=== PATIENT | female | born 1995 | race African-American/Black ===

== ENCOUNTER 2017-01-22 14:45 | Emergency (ER) | payer OTHER ==
[2017-01-22 15:00] VITALS: BP 138/79
[2017-01-22] MEDS ORDERED: SULFAMETHOXAZOLE/TRIMETHOPRIM 1 EACH TABLET PO ONE (15:12)
--- NOTE | 2017-01-22 15:57 | ED Physician Documentation ---
Skin Rash - HISTORIAN Historian: patient - HPI Stated Complaint: boil, upper inner left thigh Chief Complaint: Skin Rash Additional Information: tender, raised area x 4 days, drained yesterday Front/Back of Body, Lg ([place]): 1 - boil Onset: days ago (4) Timing: better Location: other (inguinal) Quality: painful Identified Cause?: No When Did Symptoms Start: 01/18/17 Where: home Context: Medication Exposure: none Context: Food Exposure: none Context: Other Exposure: denies: bee sting, wasp sting, ant bite, spider bite, poison adilia, poison oak - ROS CONST: none CVS/RESP: none EYES/ENT: none GI/: none MS/SKIN/LYMPH: other (tender swollwn area draining yellow pus ) NEURO/PSYCH: none - PAST HX Past History: other Other History: none Surgeries/Procedures: Yes (hernia) Allergies/Adverse Reactions: Allergies Allergy/AdvReac Type Severity Reaction Status Date / Time No Known Allergies Allergy Verified 01/22/17 14:54 Home Medications: Ambulatory Orders Medication Instructions Recorded Control 07/10/16 Sulfamethoxazole/Trimethoprim 1 each PO BID #14 tab 01/22/17 [Bactrim Ds] - SOCIAL HX Smoking History: non-smoker Alcohol Use: none Drug Use: none - FAMILY HX Family History: none - VITAL SIGNS Vital Signs: Vital Signs Temp Pulse Resp BP Pulse Ox 98.2 F 100 H 16 138/79 100 01/22/17 15:15 01/22/17 15:15 01/22/17 15:15 01/22/17 15:15 01/22/17 15:15 - REVIEWED ASSESSMENTS Nursing Assessment Reviewed: Yes Vitals Reviewed: Yes Progress - Results/Orders Results/Orders: no testing ordered. - Progress Progress: pt. stable entire time in er Critical Care Note - Critical Care Note Total Time (mins): 0 ED Results Lab/Radiology - Lab Results Lab Results: no testing ordered - Radiology Radiology Impressions: no testing ordered - Orders Orders: ED Orders Category Date Time Status Sulfamethoxazole/Trimethoprim [Bactrim Ds] Med 01/22/17 15:12 Discontinued 1 each PO NOW ONE Skin Rash Physical Exam - EXAM General Appearance: no acute distress Skin: warm,dry, abscess (left inguinal area) Location: other (left inguinal area) Character: asymmetric Symptoms: warmth, tenderness, swelling Extremities: non-tender, nml ROM, no edema EENT: eyes nml inspection, lips nml, gums nml, pharynx nml Neck: trachea midline, no swelling Respiratory: no resp distress, chest non-tender, breath sounds normal CVS: reg. rate & rhythm, heart sounds nml, murmur Abdomen: non-tender, no organomegaly, nml bowel sounds Neuro/Psych: oriented x3, CN's nml as tested, motor nml, sensation nml, mood/ affect nml Discharge Clincal Impression: Abscess Prescriptions: Sulfamethoxazole/Trimethoprim [Bactrim Ds] 1 each PO BID #14 tab Referrals: Sincere Hernandez MD [Primary Care Provider] - 2 Days Home Medications: Ambulatory Orders Control 07/10/16 Sulfamethoxazole/Trimethoprim [Bactrim Ds] 1 each PO BID #14 tab 01/22/17 Comments: discharged with script for Bactrim DS 1 p.o. bid x 7 days Condition: Stable Disposition: 01 HOME, SELF-CARE Decision to Admit: NO Decision Time: 15:10
== END 2017-01-22 15:15 | disposition home or self-care (01) ==
LOC: ED 14:45
DX: L02.426 Furuncle of left lower limb (principal)
CPT/HCPCS: 99283

== ENCOUNTER 2017-01-27 18:52 | Emergency (ER) | payer OTHER ==
--- NOTE | 2017-01-27 19:15 | ED Physician Documentation ---
General Adult - HISTORIAN Historian: patient - HPI Stated Complaint: sore throat Chief Complaint: General Adult Onset: days ago Timing: still present Severity: moderate Further Comments: yes (Pt is a 21 yo female with a sore throat. Pt was seen earlier this week and rx'd amoxicillin. Pt now has blisters on lower lip and tongue.) - ROS CONST: no problems EYES/ENT: other (blisters on lip and tongue) GI/: none MS/SKIN/LYMPH: none - PAST HX Past History: none Allergies/Adverse Reactions: Allergies Allergy/AdvReac Type Severity Reaction Status Date / Time No Known Allergies Allergy Verified 01/27/17 19:20 Home Medications: Ambulatory Orders Medication Instructions Recorded Control 07/10/16 Amoxicillin [Amoxicillin] 500 mg PO D 01/27/17 Valacyclovir HCl [Valtrex] 1,000 mg PO Q8H #21 tablet 01/27/17 - SOCIAL HX Smoking History: non-smoker - FAMILY HX Family History: No - VITAL SIGNS Vital Signs: Vital Signs Temp Pulse Resp BP Pulse Ox 138/79 01/22/17 15:15 - REVIEWED ASSESSMENTS Nursing Assessment Reviewed: Yes Vitals Reviewed: Yes General Adult Physical Exam - PHYSICAL EXAM GENERAL APPEARANCE: no distress EENT: eye inspection normal, pharyngeal erythema, other (small blisters on lower lip. one blister on L side of tongue) NECK: normal inspection RESPIRATORY: no resp distress CVS: reg rate & rhythm BACK: normal inspection SKIN: warm/dry EXTREMITIES: non-tender NEURO: oriented X3, motor nml Discharge Clincal Impression: Sore throat, oral blisters c/w HSV1 Prescriptions: Valacyclovir HCl [Valtrex] 1,000 mg PO Q8H #21 tablet Referrals: Sincere Hernandez MD [Primary Care Provider] - Home Medications: Ambulatory Orders Control 07/10/16 Amoxicillin [Amoxicillin] 500 mg PO D 01/27/17 Valacyclovir HCl [Valtrex] 1,000 mg PO Q8H #21 tablet 01/27/17 Condition: Stable Disposition: 01 HOME, SELF-CARE Decision to Admit: NO Decision Time: 19:22
[2017-01-27 19:19] VITALS: BP 139/75
== END 2017-01-27 19:30 | disposition home or self-care (01) ==
LOC: ED 18:52
DX: J02.9 Acute pharyngitis, unspecified (principal); B00.1 Herpesviral vesicular dermatitis

== ENCOUNTER 2017-02-18 18:50 | Emergency (ER) | payer OTHER ==
[2017-02-18 19:08] VITALS: BP 126/73
[2017-02-18 19:23] LABS: BASOPHILS % 0.8 (0.0-1.5); EOSINOPHILS % 2.7 % (0.0-6.8); MEAN CORPUSCULAR HEMOGLOBIN 28.5 pg (28.0-34.0); MEAN CORPUSCULAR VOLUME 91.4 fl (80.0-100.0); MONOCYTES % 4.9 % (0.0-11.0)
--- NOTE | 2017-02-18 19:23 | ED Physician Documentation ---
Female Urogenital Problems - HISTORIAN Historian: patient - HPI Stated Complaint: Increased vaginal bleeding past 1 1/2 weeks, Hx of same prob late 2015 Chief Complaint: Female Urogenital Problems Onset: other (10 days) Severity: moderate Further Comments: yes (21 year old female presents to the ER with c/o vaginal bleeding for the past 10 days. Patient states she has to use a pad and tampon, changing every hour. Patient is currently on Lo Oval daily and iron.) - Vaginal Bleeding Compared to Menstrual Periods: heavier LNMP (Last Known Menstrual Period): 02/08/17 Description of Menstrual: abnormal period(s) - ROS CONST: none GI/: other (RLQ discomfort ). denies: nausea, vomiting CVS/RESP: none EYES/ENT: none NEURO/PSYCH: none MS/SKIN/LYMPH: none - PAST HX Past History: other (anemia, dysfunctional uterine bleeding, psychiatric - cutter) Allergies/Adverse Reactions: Allergies Allergy/AdvReac Type Severity Reaction Status Date / Time No Known Allergies Allergy Verified 02/18/17 19:08 Home Medications: Ambulatory Orders Medication Instructions Recorded Norgestrel-Ethinyl Estradiol 1 tab PO D 02/18/17 [Cryselle-28 Tablet] - SOCIAL HX Smoking History: cigarettes - FAMILY HX Family History: none - VITAL SIGNS Vital Signs: Vital Signs Temp Pulse Resp BP Pulse Ox 98.8 F 90 16 126/73 99 02/18/17 18:51 02/18/17 18:51 02/18/17 18:51 02/18/17 18:51 02/18/17 18:51 - REVIEWED ASSESSMENTS Nursing Assessment Reviewed: Yes Vitals Reviewed: Yes Progress - Progress Progress: Was seen in October [address] Santiago and placed on iron and Lo Oval. Patient was to follow up in 6 weeks, did not go to follow up appointment. 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
== END 2017-02-18 20:05 | disposition home or self-care (01) ==
LOC: ED 18:50
DX: N94.6 Dysmenorrhea, unspecified (principal)
CPT/HCPCS: 85025; 99283

== ENCOUNTER 2017-03-03 09:01 | Outpatient (CLI) | payer OTHER | END 2017-03-03 09:02 | LOC: OUT 09:01 | PROVIDERS: ATTEND General Practice | DX: N93.8 Other specified abnormal uterine and vaginal bleeding (principal); Z91.5 Personal history of self-harm | CPT/HCPCS: 99213 ==

== ENCOUNTER 2017-09-15 13:56 | Outpatient (CLI) | payer OTHER | END 2017-09-15 14:00 | LOC: LAB 13:56 | PROVIDERS: ATTEND Physician Assistant | DX: Z34.90 Encounter for supervision of normal pregnancy, unspecified, unspecified trimester (principal) | CPT/HCPCS: 36415; 84702 ==

== ENCOUNTER 2017-09-20 15:29 | Emergency (ER) | payer OTHER ==
[2017-09-20] MEDS ORDERED: 0.9 % SODIUM CHLORIDE 1,000 ML IV ONE (15:44)
--- NOTE | 2017-09-20 17:00 | ED Physician Documentation ---
General Adult - HISTORIAN Historian: patient - HPI Stated Complaint: possible anxiety Chief Complaint: General Adult Onset: days ago Timing: still present Severity: mild Further Comments: yes (Pt is a 21 yo female who is approximately 4 weeks based on home and office test. Pt has hx anxiety and has been having a feeling that she can't take a full breath and a feeling of tightness in her chest. Pt has not had n/v, diaphoresis or radiation of chest tightness. Pt has been told by pcp that she may take vistaril for her anxiety, but is reticent to do this in .) - ROS CONST: other (anxiety) EYES/ENT: none CVS/RESP: chest pain (tightness), shortness of breath ("can't get a full breath ") GI/: none MS/SKIN/LYMPH: none NEURO/PSYCH: anxiety - PAST HX Past History: other (anxiety) Other History: none Surgeries/Procedures: none Allergies/Adverse Reactions: Allergies Allergy/AdvReac Type Severity Reaction Status Date / Time No Known Allergies Allergy Verified 09/20/17 15:42 - SOCIAL HX Smoking History: non-smoker - FAMILY HX Family History: No - VITAL SIGNS Vital Signs: Vital Signs Temp Pulse Resp BP Pulse Ox 98.0 F 85 20 107/63 99 09/20/17 15:37 09/20/17 15:37 09/20/17 15:37 09/20/17 15:37 09/20/17 15:37 - REVIEWED ASSESSMENTS Nursing Assessment Reviewed: Yes Vitals Reviewed: Yes Progress - Progress Progress: NS 1 L IVF U/a neg improved ED Results Lab/Radiology - Orders Orders: ED Orders Category Date Time Status Place IV Lock 1T Care 09/20/17 15:45 Active URINALYSIS Routine Lab 09/20/17 Ordered 0.9 % Sodium Chloride [Normal Saline] 1,000 ml Med 09/20/17 15:44 Discontinued IV Q1H General Adult Physical Exam - PHYSICAL EXAM GENERAL APPEARANCE: mild distress (mild anxitey) EENT: pharynx normal NECK: normal inspection, supple RESPIRATORY: no resp distress, chest non-tender, breath sounds normal CVS: reg rate & rhythm, heart sounds normal ABDOMEN: soft, no organomegaly, normal bowel sounds BACK: normal inspection, no CVA tenderness SKIN: warm/dry, normal color EXTREMITIES: non-tender, normal range of motion, no evidence of injury NEURO: oriented X3, CN's nml as tested, motor nml, sensation nml Discharge Clincal Impression: Anxiety, Referrals: Sincere Hernandez MD [Primary Care Provider] - Condition: Good Disposition: 01 HOME, SELF-CARE Decision to Admit: NO Decision Time: 17:00
[2017-09-20 17:07] VITALS: BP 110/67
== END 2017-09-20 17:05 | disposition home or self-care (01) ==
LOC: ED 15:29
DX: F41.9 Anxiety disorder, unspecified (principal); Z33.1 Pregnant state, incidental
CPT/HCPCS: 96360; 99283; J7030; S1016

== ENCOUNTER 2017-12-27 23:16 | Emergency (ER) | payer OTHER ==
[2017-12-27 23:44] VITALS: BP 91/51
--- NOTE | 2017-12-27 23:52 | ED Physician Documentation ---
Female Urogenital Problems - HISTORIAN Historian: patient - HPI Stated Complaint: abd pain Chief Complaint: Female Urogenital Problems Additional Information: pt `19 weeks having int but no regular abd pains irregular est q 20-30 minutes apart and not regular past 2-3 days. they come and go has whitish discharge ess throughout -unable to hear fht w/our ofl monitor- has heard them w/ prev us at the obs office. suggested perhaps more harml in checking vaginally lthan in lleaving alone. 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 denies: spotting, passing clots Care: Yes Sexual History: active - Associated Symptoms Urinary Symptoms: denies: blood in urine, frequent urination, discomfort w/ urination Discharge: vaginal discharge - ROS CONST: no problems GI/: denies: nausea, vomiting, decreased appetite CVS/RESP: denies: none, chest pain, shortness of breath EYES/ENT: none NEURO/PSYCH: none MS/SKIN/LYMPH: none - PAST HX Past History: none Other History: none Surgeries/Procedures: other (hernia) Immunizations: UTD Allergies/Adverse Reactions: Allergies Allergy/AdvReac Type Severity Reaction Status Date / Time No Known Allergies Allergy Verified 09/20/17 15:42 - SOCIAL HX Smoking History: non-smoker Alcohol Use: none Drug Use: none - FAMILY HX Family History: none - VITAL SIGNS Vital Signs: Vital Signs Temp Pulse Resp BP Pulse Ox 98.4 F 91 H 16 91/51 100 12/27/17 23:20 12/27/17 23:20 12/27/17 23:20 12/27/17 23:20 12/27/17 23:20 - REVIEWED ASSESSMENTS Nursing Assessment Reviewed: Yes Vitals Reviewed: Yes Female Urogenital Problems - EXAM General Appearance: mild distress EENT: eye inspection normal, no signs of dehydration, no nystagmus Neck: nml inspection. No: lymphadenopathy Respiratory: no resp. distress, breath sounds nml CVS: reg rate & rhythm, heart sounds normal Abdomen: soft, non-tender, no organomegaly, no distention, other (uterus soft no umm contractions). No: tenderness Back: non-tender, painless ROM. No: vertebral point-tendernes Skin: color nml, no rash, warm,dry. No: cyanosis, diaphoresis Extremities: non-tender, normal range of motion, no evidence of injury Neuro: oriented X3, CN's nml as tested, motor nml, sensation nml, mood/affect nml Discharge Clincal Impression: uterine 19 weeks Referrals: Sincere Hernandez MD [Primary Care Provider] - 2 Days Comments: home observe rt ed or see ob if sy get sig worse or more intense and w/ regularity-pt agreees Condition: Good Disposition: 01 HOME, SELF-CARE Decision to Admit: NO Decision Time: 23:59
== END 2017-12-28 00:02 | disposition home or self-care (01) ==
LOC: ED 23:16
DX: R10.9 Unspecified abdominal pain (principal); Z3A.19 19 weeks gestation of pregnancy
CPT/HCPCS: 99282

== ENCOUNTER 2018-01-28 13:43 | Emergency (ER) | payer OTHER ==
[2018-01-28] MEDS ORDERED: 0.9 % SODIUM CHLORIDE 1,000 ML IV ONE (14:15)
--- NOTE | 2018-01-28 14:16 | ED Physician Documentation ---
Low Back Pain - HISTORIAN Historian: patient - HPI Stated Complaint: Back Pain/Lower Abdominal Pain Chief Complaint: Low Back Pain/ Injury History: other (she is (23 weeks) ) Onset: days ago (3) Duration: continues in ED Recent Injury: No (no injury although she is lifting at the [employer] where she works ) Context: lifting Where: work Severity: mild Quality: dull Associated Symptoms: other (no cramps. No cyclic pain but constant ). denies: fever, chills, nausea, vomiting Relieved By: nothing (she has only tried a heating pad due to ) Further Comments: yes (small amount of white discharge. No fluid leaking . Denies any cramping in abdomen.) - ROS CONST: no problems - PAST HX Past History: other (none ) Surgeries/Procedures: other (none ) Immunizations: UTD Allergies/Adverse Reactions: Allergies Allergy/AdvReac Type Severity Reaction Status Date / Time No Known Allergies Allergy Verified 01/28/18 14:19 - SOCIAL HX Smoking History: non-smoker Alcohol Use: none Drug Use: none - FAMILY HX Family History: none - VITAL SIGNS Vital Signs: Vital Signs Temp Pulse Resp BP Pulse Ox 90 16 105/65 100 01/28/18 13:45 01/28/18 13:45 01/28/18 13:45 01/28/18 13:45 - REVIEWED ASSESSMENTS Nursing Assessment Reviewed: Yes Vitals Reviewed: Yes ED Results Lab/Radiology - Lab Results Lab Results: Lab Results 01/28/18 13:52 Urine Color Yellow (YELLOW) Urine Appearance Clear (CLEAR) Urine pH 7.5 (5.0 - 8.0) Ur Specific [place] 1.020 (1.010-1.030) Urine Protein Trace mg/dL H mg/dL (NEGATIVE) Urine Ketones Trace mg/dL H mg/dL (NEGATIVE) Urine Occult Blood Negative (NEGATIVE) Urine Nitrite Negative (NEGATIVE) Urine Bilirubin Negative (NEGATIVE) Urine Urobilinogen 0.2 Eu Eu (0.2-1.0) Ur Leukocyte Esterase Trace H (NEGATIVE) Urine Glucose Negative mg/dL mg/dL (NEGATIVE) - Orders Orders: ED Orders Category Date Time Status UA MACRO DIP ONLY Routine Lab 01/28/18 13:52 Completed URINE CULTURE Routine Lab 01/28/18 13:52 Received 0.9 % Sodium Chloride [Normal Saline] 1,000 ml Med 01/28/18 14:15 Discontinued IV .STK-MED Low Back Pain/Injury - Physical Exam General Appearance: no acute distress, alert EENT: eye inspection normal, ENT inspection normal Neck: non-tender Resp/CVS: chest non-tender, breath sounds nml, heart sounds nml, no resp. distress, lungs clear, reg. rate & rhythm Abdomen: non-tender, other (FHT documented on nurse flow sheet 165) Back: non-tender, painless ROM, other (tenderness low back right to midline with palpation. ) Neuro/Psych: oriented x3, motor nml, sensation nml Skin: warm/dry, normal color Extremities: non-tender, normal range of motion, no evidence of injury, no edema Discharge Clincal Impression: Low back pain Qualifiers: Chronicity: acute Back pain laterality: right Sciatica presence: without sciatica Qualified Code(s): M54.5 - Low back pain UTI in Qualifiers: Trimester: second trimester Qualified Code(s): O23.42 - Unspecified infection of urinary tract in , second trimester Referrals: Sincere Hernandez MD [Primary Care Provider] - 2 Days Comments: 1. increase fluids 2. rest 3. contact OBGYN 4. Return to ER for increasing pain, cramping, vaginal leakage or other concerns Condition: Stable Disposition: 01 HOME, SELF-CARE Decision to Admit: NO Date of Decison to Admit: 01/28/18 Decision Time: 14:55
[2018-01-28 14:24] LABS: APPEARANCE,URINE CLEAR (CLEAR); COLOR,URINE YELLOW (YELLOW)
[2018-01-28 14:25] LABS: OCCULT BLOOD,URINE NEGATIVE (NEGATIVE); PH URINE 7.5 (5.0 - 8.0); UROBILINOGEN URINE 0.2 Eu (0.2-1.0)
[2018-01-28 15:15] VITALS: BP 110/68
== END 2018-01-28 15:00 | disposition home or self-care (01) ==
LOC: ED 13:43
DX: O23.42 Unspecified infection of urinary tract in pregnancy, second trimester (principal); M54.5 Low back pain
CPT/HCPCS: 81002; 87086; 87186; J7030; 96365; 99282; 99283; S1016

== ENCOUNTER 2018-03-04 22:03 | Emergency (ER) | payer OTHER ==
[2018-03-04 22:12] VITALS: BP 116/63
--- NOTE | 2018-03-04 22:13 | ED Physician Documentation ---
General Adult - HISTORIAN Historian: patient - HPI Stated Complaint: "Panic Attacks" Chief Complaint: General Adult Onset: other (this week ) Timing: still present Severity: mild Further Comments: yes (She reports she has had anxiety before and her grandfather this week and her anxiety it worse. She did see her OBGYN this am and she had not issues. She is feeling the baby move) Last known Well Code/Unknown Code: Unknown - ROS CONST: no problems - PAST HX Past History: other (anxiety ) Surgeries/Procedures: none Immunizations: UTD Allergies/Adverse Reactions: Allergies Allergy/AdvReac Type Severity Reaction Status Date / Time No Known Allergies Allergy Verified 03/04/18 22:12 - SOCIAL HX Smoking History: non-smoker Alcohol Use: none Drug Use: none - FAMILY HX Family History: No - VITAL SIGNS Vital Signs: Vital Signs Temp Pulse Resp BP Pulse Ox 98 F 82 16 116/63 99 03/04/18 22:05 03/04/18 22:05 03/04/18 22:05 03/04/18 22:05 03/04/18 22:05 - REVIEWED ASSESSMENTS Nursing Assessment Reviewed: Yes Vitals Reviewed: Yes General Adult Physical Exam - PHYSICAL EXAM GENERAL APPEARANCE: no distress EENT: eye inspection normal, ENT inspection normal NECK: normal inspection RESPIRATORY: no resp distress, chest non-tender, breath sounds normal CVS: reg rate & rhythm, heart sounds normal, equal pulses, no murmur ABDOMEN: soft, normal bowel sounds, no distension BACK: normal inspection SKIN: warm/dry, normal color EXTREMITIES: non-tender, normal range of motion, no evidence of injury, no edema NEURO: oriented X3, CN's nml as tested, motor nml, sensation nml, mood/affect nml, cognition normal, other (Denies any suicidal thoughts. She is not having any issues with depression other than sad over grandfathers ) Discharge Clincal Impression: Anxiety Referrals: Sincere Hernandez MD [Primary Care Provider] - 2 Days Comments: 1. Follow up via phone with OBGYN tomorrow 2. Benadryl is safe to take with anxiety and 3. Increase fluids 4. Deep breathing for anxiety 5. Return to the ER for any concerns Condition: Stable Disposition: 01 HOME, SELF-CARE Decision to Admit: NO Date of Decison to Admit: 03/04/18 Decision Time: 22:29
[2018-03-04] MEDS ORDERED: diphenhydrAMINE HCL 25 MG TABLET PO ONE ×2 (22:17→22:18)
== END 2018-03-04 22:34 | disposition home or self-care (01) ==
LOC: ED 22:03
DX: F41.1 Generalized anxiety disorder (principal)
CPT/HCPCS: 99283; Q0163

== ENCOUNTER 2018-03-17 22:11 | Emergency (ER) | payer OTHER ==
--- NOTE | 2018-03-17 22:26 | ED Physician Documentation ---
General Adult - HISTORIAN Historian: patient - HPI Stated Complaint: lump on uterus Chief Complaint: General Adult Additional Information: Lump on uterus for several weeks that causes her pain. Has not seen anyone for this and no treatment has been attempted. Came to the ER [place] because she says the pain is worse. , edc in May. No problems with and has not shown lump to OB. - ROS CONST: no problems - PAST HX Past History: none Allergies/Adverse Reactions: Allergies Allergy/AdvReac Type Severity Reaction Status Date / Time No Known Allergies Allergy Verified 03/04/18 22:12 - SOCIAL HX Smoking History: non-smoker - FAMILY HX Family History: No - VITAL SIGNS Vital Signs: Vital Signs Temp Pulse Resp BP Pulse Ox 116/63 03/04/18 22:34 - REVIEWED ASSESSMENTS Nursing Assessment Reviewed: Yes Vitals Reviewed: Yes Progress - Progress Progress: States has been feeling baby move. No doppler available to check FHT's. General Adult Physical Exam - PHYSICAL EXAM GENERAL APPEARANCE: no distress EENT: eye inspection normal, ENT inspection normal NECK: normal inspection, supple RESPIRATORY: no resp distress ABDOMEN: soft (gravid), other (Distal abdomen on right, above labia majora, w/o swelling, induration, erythema, or tenderness. ) BACK: other (supple movements w/o pain) SKIN: warm/dry, normal color EXTREMITIES: normal range of motion (gait and stance) NEURO: CN's nml as tested, motor nml, sensation nml Discharge Clincal Impression: Pain in symphysis pubis during Referrals: Sincere Hernandez MD [Primary Care Provider] - 2 Days Condition: Good Disposition: HOME, SELF-CARE Decision to Admit: NO Decision Time: 22:30
[2018-03-17 22:32] VITALS: BP 116/58
== END 2018-03-17 22:35 | disposition home or self-care (01) ==
LOC: ED 22:11
DX: O99.89 Other specified diseases and conditions complicating pregnancy, childbirth and the puerperium (principal)
CPT/HCPCS: 99282

== ENCOUNTER 2018-06-20 23:55 | Emergency (ER) | payer OTHER ==
--- NOTE | 2018-06-21 00:02 | ED Physician Documentation ---
General Adult - HISTORIAN Historian: patient - HPI Stated Complaint: sore throat x 1 week Chief Complaint: Sore Throat Onset: other (1 week) Timing: still present Severity: mild Further Comments: yes (She reports a sore throat x 1 week. No other symptoms. No OTC meds for symptoms) Last known Well Code/Unknown Code: Unknown - ROS CONST: no problems EYES/ENT: none CVS/RESP: none MS/SKIN/LYMPH: none - PAST HX Past History: none Immunizations: UTD Allergies/Adverse Reactions: Allergies Allergy/AdvReac Type Severity Reaction Status Date / Time No Known Allergies Allergy Verified 03/17/18 22:32 Home Medications: Ambulatory Orders Medication Instructions Recorded Ferrous Sulfate [Iron] 325 mg PO DAILY 03/17/18 - SOCIAL HX Smoking History: non-smoker Alcohol Use: none Drug Use: none - FAMILY HX Family History: No - VITAL SIGNS Vital Signs: Vital Signs Temp Pulse Resp BP Pulse Ox 116/58 03/17/18 22:35 - REVIEWED ASSESSMENTS Nursing Assessment Reviewed: Yes Vitals Reviewed: Yes General Adult Physical Exam - PHYSICAL EXAM GENERAL APPEARANCE: no distress EENT: eye inspection normal, TM's nml, pharyngeal erythema NECK: normal inspection RESPIRATORY: no resp distress, chest non-tender, breath sounds normal CVS: reg rate & rhythm, heart sounds normal, equal pulses, no murmur ABDOMEN: soft SKIN: warm/dry, normal color EXTREMITIES: non-tender, normal range of motion, no evidence of injury, no edema NEURO: oriented X3 Discharge Clincal Impression: Acute pharyngitis Qualifiers: Pharyngitis/tonsillitis etiology: unspecified etiology Qualified Code(s): J02.9 - Acute pharyngitis, unspecified Referrals: Sicnere Hernandez MD [Primary Care Provider] - 2 Days Additional Instructions: 1. Tylenol or Ibuprofen as directed on bottle as needed for pain 2. Increase fluids 3. See PCP in 2-4 days for continued sore throat 4. Return to ER for concerns Condition: Stable Disposition: 01 HOME, SELF-CARE Decision to Admit: NO Date of Decison to Admit: 06/21/18 Decision Time: 00:48
[2018-06-21 03:05] VITALS: BP 91/64
== END 2018-06-21 01:20 | disposition home or self-care (01) ==
LOC: ED 23:55
DX: J02.9 Acute pharyngitis, unspecified (principal)
CPT/HCPCS: 87070; 87880; 99282

== ENCOUNTER 2018-08-13 14:45 | Outpatient (CLI) | payer OTHER | END 2018-08-13 14:46 | LOC: LABRHC 14:45 | PROVIDERS: ATTEND Physician Assistant | DX: R30.0 Dysuria (principal); Z11.3 Encounter for screening for infections with a predominantly sexual mode of transmission | CPT/HCPCS: 87086; 87491; 87591 ==

== ENCOUNTER 2018-08-31 14:33 | Outpatient (CLI) | payer OTHER | END 2018-08-31 14:34 | LOC: LABRHC 14:33 | PROVIDERS: ATTEND Physician Assistant | DX: N89.8 Other specified noninflammatory disorders of vagina (principal); R30.0 Dysuria | CPT/HCPCS: 87086; 87491; 87591 ==

== ENCOUNTER 2018-10-12 17:05 | Outpatient (CLI) | payer OTHER ==
[2018-10-18 12:29] LABS: CANDIDA SPECIES DNA PROBE NEGATIVE; GARDNERELLA VAGINALIS POSITIVE
== END 2018-10-12 17:06 ==
LOC: LABRHC 17:05
PROVIDERS: ATTEND Physician Assistant
DX: N89.8 Other specified noninflammatory disorders of vagina (principal); B96.89 Other specified bacterial agents as the cause of diseases classified elsewhere
CPT/HCPCS: 87480; 87491; 87510; 87591; 87798

== ENCOUNTER 2018-10-14 17:18 | Emergency (ER) | payer OTHER ==
--- NOTE | 2018-10-14 17:38 | ED Physician Documentation ---
General Adult - HISTORIAN Historian: patient - HPI Stated Complaint: anxiety attacks Chief Complaint: General Adult Onset: days ago (2) Timing: still present Severity: mild Further Comments: yes (She states she has had anxiety for a while and she was on zoloft which helped but was removed while . She has had increased anxiety over the last two days. She has increased stress. No suicide thoughts.) - ROS CONST: no problems - PAST HX Past History: other (anxiety ) Immunizations: UTD Allergies/Adverse Reactions: Allergies Allergy/AdvReac Type Severity Reaction Status Date / Time No Known Allergies Allergy Verified 10/14/18 18:10 Home Medications: Ambulatory Orders Medication Instructions Recorded Unobtainable 10/14/18 - SOCIAL HX Smoking History: non-smoker, greater than 1 pack/day Drug Use: none - FAMILY HX Family History: No - VITAL SIGNS Vital Signs: Vital Signs Temp Pulse Resp BP Pulse Ox 91/64 06/21/18 01:20 - REVIEWED ASSESSMENTS Nursing Assessment Reviewed: Yes Vitals Reviewed: Yes General Adult Physical Exam - PHYSICAL EXAM GENERAL APPEARANCE: no distress EENT: eye inspection normal NECK: normal inspection RESPIRATORY: no resp distress, chest non-tender, breath sounds normal CVS: reg rate & rhythm, heart sounds normal, equal pulses ABDOMEN: soft, no distension BACK: normal inspection SKIN: warm/dry, normal color EXTREMITIES: non-tender NEURO: oriented X3, CN's nml as tested Discharge Clincal Impression: Anxiety Referrals: Sincere Hernandez MD [Primary Care Provider] - 2 Days Comments: 1. Hydroxazine 25 mg take 1 by mouth every 8 hours as needed for anxiety 2. See PCP in 2-4 days 3. Return to ER for any concerns Condition: Stable Disposition: 01 HOME, SELF-CARE Decision to Admit: NO Date of Decison to Admit: 10/14/18 Decision Time: 17:55
[2018-10-14] MEDS: HYDROXYZINE HCL 25 MG TABLET PO ONE (18:04)
[2018-10-14 18:08] VITALS: BP 114/66
== END 2018-10-14 18:20 | disposition home or self-care (01) ==
LOC: ED 17:18
DX: F41.9 Anxiety disorder, unspecified (principal)
CPT/HCPCS: 99281; 99283

== ENCOUNTER 2019-02-11 21:42 | Emergency (ER) | payer OTHER ==
[2019-02-11] MEDS ORDERED: ONDANSETRON HCL 4 MG TAB.RAPDIS PO ONE (21:52)
[2019-02-11] MEDS ORDERED: ONDANSETRON HCL 4 MG TAB.RAPDIS PO PRN (21:52)
[2019-02-11 21:54] VITALS: BP 115/69
--- NOTE | 2019-02-11 21:54 | ED Physician Documentation ---
Nausea/Vomiting/Diarrhea - HISTORIAN Historian: patient - [facility] Chief Complaint: Nausea,Vomiting,Diarrhea Additional Information: Patient is a 23-year-old female who presents to the ER with c/o n/v/d that started at 3p and stopped at 8p. She denies feeling dehydrated. When asked if she could be she stated "I don't know"- states that she is sexually active and not using control. Onset: hours (from 3p-8p) Duration: other (improved) Timing: gradual onset Context: bad food (possibly) Severity: mild - Associated Symptoms Vomiting: mild Diarrhea: mild Abdominal Pain: none - ROS CONST: denies: fever, chills CVS/RESP: denies: shortness of breath, cough GI/: none EYES/ENT: none MS/SKIN/LYMPH: denies: rash NEURO/PSYCH: none - PAST HX Past History: none Surgeries/Procedures: other (hernia) Immunizations: UTD Allergies/Adverse Reactions: Allergies Allergy/AdvReac Type Severity Reaction Status Date / Time No Known Allergies Allergy Verified 02/11/19 21:55 Home Medications: Ambulatory Orders Medication Instructions Recorded NK 02/11/19 - SOCIAL HX Smoking History: non-smoker Alcohol Use: rarely Drug Use: none - FAMILY HX Family History: none - VITAL SIGNS Vital Signs: Vital Signs Temp Pulse Resp BP Pulse Ox 98.7 F 110 H 19 115/69 98 02/11/19 21:49 02/11/19 21:49 02/11/19 21:49 02/11/19 21:49 02/11/19 21:49 - REVIEWED ASSESSMENTS Nursing Assessment Reviewed: Yes Vitals Reviewed: Yes ED Results Lab/Radiology - Lab Results Lab Results: test- Negative - Orders Orders: ED Orders Category Date Time Status URINE HCG Stat Lab 02/11/19 22:09 Ordered Ondansetron HCl Rapdis [Zofran Odt] Med 02/11/19 21:52 Discontinued 4 mg PO NOW ONE Ondansetron HCl Rapdis [Zofran Odt] Med 02/11/19 21:52 Ordered 8 mg PO TAKE HOME PRN Nausea Physical Exam - EXAM General Appearance: no acute distress, alert EENT: eye inspection normal, ENT inspection normal, pharynx normal, YVON Neck: normal inspection, supple Respiratory: breath sounds normal CVS: heart sounds normal, equal pulses Abdomen: non-tender Skin: warm/dry Extremities: normal range of motion Neuro/Psych: oriented X3, CN's nml as tested, motor nml, sensation nml, mood/affect nml, cognition normal Discharge Clincal Impression: Gastritis Referrals: Primary Doctor,No [REFERRING] - 2 Days Additional Instructions: Take Zofran 4 mg every 6 hours as needed for nausea and vomiting Increase fluid intake; no caffeine Start with a bland diet and advance as tolerated; no spicy, greasy, or fried foods Follow up with PCP next week if no improvement Condition: Good Disposition: 01 HOME, SELF-CARE Decision to Admit: NO Decision Time: 22:18
== END 2019-02-11 22:19 | disposition home or self-care (01) ==
LOC: ED 21:42
DX: K29.70 Gastritis, unspecified, without bleeding (principal)
CPT/HCPCS: 81025; 99283; A9270

== ENCOUNTER 2019-04-25 16:22 | Outpatient (CLI) | payer OTHER ==
[2019-02-22 18:25] VITALS: BP 107/55
== END 2019-04-25 16:23 ==
LOC: LABRHC 16:22
PROVIDERS: ATTEND Family Medicine
DX: R30.0 Dysuria (principal); Z11.3 Encounter for screening for infections with a predominantly sexual mode of transmission
CPT/HCPCS: 87491; 87591

== ENCOUNTER 2019-06-08 13:22 | Emergency (ER) | payer OTHER ==
--- NOTE | 2019-06-08 13:48 | ED Physician Documentation ---
General Adult - HISTORIAN Historian: patient - HPI Stated Complaint: vag bleeding, ? of Chief Complaint: General Adult Timing: still present Further Comments: yes (Pt is a 23 yo female with vaginal bleeding. Pt says that she had a pos home test yesterday. Pt says she is 4 days late for her period. Bleeding is heavier than her usual period and she used 3 pads since this am. No lightheadedness, n/v, or other sx.) - ROS CONST: no problems EYES/ENT: none CVS/RESP: none GI/: other (vag bleeding) MS/SKIN/LYMPH: none - PAST HX Past History: other (anemia) Allergies/Adverse Reactions: Allergies Allergy/AdvReac Type Severity Reaction Status Date / Time No Known Allergies Allergy Verified 06/08/19 14:08 Home Medications: Ambulatory Orders Medication Instructions Recorded NK 06/08/19 - SOCIAL HX Smoking History: non-smoker - FAMILY HX Family History: No - VITAL SIGNS Vital Signs: Vital Signs Temp Pulse Resp BP Pulse Ox 107/55 04/26/19 21:36 - REVIEWED ASSESSMENTS Nursing Assessment Reviewed: Yes Vitals Reviewed: Yes Progress - Progress Progress: vag u/s (done prior to preg test) - no sac, no ectopic seen, advise r/o with quant hcg Serum preg - neg General Adult Physical Exam - PHYSICAL EXAM GENERAL APPEARANCE: no distress EENT: pharynx normal NECK: normal inspection, supple RESPIRATORY: no resp distress, chest non-tender, breath sounds normal CVS: reg rate & rhythm, heart sounds normal ABDOMEN: soft, no organomegaly, normal bowel sounds BACK: normal inspection, no CVA tenderness SKIN: warm/dry, normal color EXTREMITIES: non-tender, normal range of motion, no evidence of injury NEURO: oriented X3, motor nml, sensation nml Discharge Clincal Impression: Heavy menses Qualifiers: Menorrahagia type: with onset of menstrual periods Qualified Code(s): N92.2 - Excessive menstruation at puberty Referrals: Sincere Hernandez MD [Primary Care Provider] - Condition: Stable Disposition: 01 HOME, SELF-CARE Decision to Admit: NO Decision Time: 15:12
[2019-06-08] MEDS ORDERED: 0.9 % SODIUM CHLORIDE 1,000 ML IV ONE (13:55)
[2019-06-08 14:21] LABS: eGFR (Non-African) > 60
[2019-06-08 14:37] LABS: BASOPHILS % 0.5 % (0.0-1.5); NEUTROPHILS # 1.8 # k/uL (1.4-7.7)
[2019-06-08 15:20] VITALS: BP 107/55
--- NOTE | 2019-06-08 16:08 | Diagnostic Imaging Report ---
BETITO GTZ [facility] [id number] [facility] [place] [address] 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 Myometrium without gross irregularity. Endometrial complex measures 7.0 mm. No gestational sac identified. Right ovary measures 2.4 x 1.1 x 1.2 cm. Left ovary measures 3.8 x 2.0 x 2.8 cm. Normal flow on Doppler analysis. Left ovarian cyst measuring 2.8 x 2.0 x 1.6 cm. Impression: No gestational sac identified. Correlate with quantitative beta hCG values. An ectopic has not been excluded. Electronically signed on Jun 08, 2019 3:43:18 PM CDT by: Gabriel ATKINS
== END 2019-06-08 15:18 | disposition home or self-care (01) ==
LOC: ED 13:22
DX: O20.9 Hemorrhage in early pregnancy, unspecified (principal); Z3A.00 Weeks of gestation of pregnancy not specified
CPT/HCPCS: 76830; 80053; 84703; 85025; 96360; 99281; 99282; J7030; S1016

== ENCOUNTER 2019-08-05 14:24 | Emergency (ER) | payer OTHER | END 2019-08-05 15:00 | disposition home or self-care (01) | LOC: ED 14:24 | DX: N39.0 Urinary tract infection, site not specified (principal) | CPT/HCPCS: 99281; 99282 ==

== ENCOUNTER 2019-09-20 22:56 | Emergency (ER) | payer OTHER ==
[2019-09-20 23:11] VITALS: BP 104/65
--- NOTE | 2019-09-20 23:11 | ED Physician Documentation ---
General Adult - HISTORIAN Historian: patient - HPI Chief Complaint: General Adult Additional Information: 23 year old female presents with c/o SOB and CP every night x2 weeks and states that she feels that it is her anxiety. She states that it only happens at bedtime. Denies any f/c/n/v/d. Onset: days ago Timing: gone now Severity: mild Modifying Factors: anxiety - ROS CONST: no problems EYES/ENT: none CVS/RESP: none GI/: none MS/SKIN/LYMPH: none NEURO/PSYCH: denies: headache - PAST HX Past History: other (anemia) Other History: other (anxiety and depression) Immunizations: UTD Allergies/Adverse Reactions: Allergies Allergy/AdvReac Type Severity Reaction Status Date / Time No Known Allergies Allergy Verified 09/20/19 23:11 Home Medications: Ambulatory Orders Medication Instructions Recorded Hydroxyzine HCl 25 mg PO Q6H PRN #10 tablet 09/21/19 - SOCIAL HX Smoking History: less than 1 pack/day Alcohol Use: none Drug Use: none - FAMILY HX Family History: No - VITAL SIGNS Vital Signs: Vital Signs Temp Pulse Resp BP Pulse Ox 107/55 06/08/19 15:18 - REVIEWED ASSESSMENTS Nursing Assessment Reviewed: Yes Vitals Reviewed: Yes General Adult Physical Exam - PHYSICAL EXAM GENERAL APPEARANCE: no distress EENT: eye inspection normal, ENT inspection normal, pharynx normal, no signs of dehydration, YVON NECK: normal inspection, supple RESPIRATORY: breath sounds normal CVS: heart sounds normal, equal pulses ABDOMEN: soft, normal bowel sounds SKIN: warm/dry, normal color EXTREMITIES: non-tender, normal range of motion NEURO: oriented X3, CN's nml as tested, motor nml, sensation nml, mood/affect nml, cognition normal Discharge Clincal Impression: Anxiety Referrals: Sincere Hernandez MD [Primary Care Provider] - 2 Days Additional Instructions: Take Hydroxyzine 25 mg by mouth every 6 hours as needed for anxiety Call and schedule appointment with PCP WILIAN to discuss anxiety Condition: Good Disposition: 01 HOME, SELF-CARE Decision to Admit: NO Decision Time: 02:22
[2019-09-20] MEDS: hydrOXYzine HCL 25 MG TABLET PO ONE (23:12)
== END 2019-09-20 23:12 | disposition home or self-care (01) ==
LOC: ED 22:56
DX: F41.9 Anxiety disorder, unspecified (principal)
CPT/HCPCS: 99282; 99283

== ENCOUNTER 2019-09-23 03:38 | Emergency (ER) | payer OTHER ==
--- NOTE | 2019-09-23 04:11 | ED Physician Documentation ---
General Adult - HISTORIAN Historian: patient - HPI Stated Complaint: "When my anxiety gets high I feel like I get SOA" Chief Complaint: Psychological Disorder Onset: other ("going on for a while" ) Timing: better Further Comments: yes (she was noted to have a anxiety attack around 1-2 am and she did take her hydroxizine and she states she was not feeling any relief so she called 911. She did see her PCP and he did start her on Buspar to aide the Hydroxizine and she has not picked this up yet. She reprots she has tried to call [facility] and no one ever answers. She does not have anyone she can talk to - she does not feel like self harm.) - ROS CONST: no problems - PAST HX Past History: other (anxiety ) Allergies/Adverse Reactions: Allergies Allergy/AdvReac Type Severity Reaction Status Date / Time No Known Allergies Allergy Verified 09/23/19 03:49 Home Medications: Ambulatory Orders Medication Instructions Recorded Hydroxyzine HCl 25 mg PO Q6H PRN #10 tablet 09/21/19 - SOCIAL HX Smoking History: non-smoker Alcohol Use: none Drug Use: none - FAMILY HX Family History: No - VITAL SIGNS Vital Signs: Vital Signs Temp Pulse Resp BP Pulse Ox 97.8 F 80 14 130/78 98 09/23/19 03:40 09/23/19 03:40 09/23/19 03:40 09/23/19 03:40 09/23/19 03:40 - REVIEWED ASSESSMENTS Nursing Assessment Reviewed: Yes Vitals Reviewed: Yes Progress - Progress Progress: encouraged her to chicken picker her meds and get with a service for counseling- she is agreeable. She is not physically in any distress and she agrees. DG General Adult Physical Exam - PHYSICAL EXAM GENERAL APPEARANCE: no distress EENT: eye inspection normal, no signs of dehydration, YVON NECK: normal inspection RESPIRATORY: no resp distress, chest non-tender, breath sounds normal CVS: reg rate & rhythm, heart sounds normal, equal pulses ABDOMEN: soft, non-tender SKIN: warm/dry, normal color EXTREMITIES: non-tender NEURO: oriented X3 Discharge Clincal Impression: Anxiety Referrals: Sincere Hernandez MD [Primary Care Provider] - 2 Days Comments: 1. Follow up with PCP on help with setting up a counselor or psychiatrist service 2. Take meds as prescribed 3. Deep breathing exercises 4. Return to ER for any increased concerns Condition: Stable Decision to Admit: NO Date of Decison to Admit: 09/23/19 Decision Time: 04:22
[2019-09-23 04:29] VITALS: BP 118/68
== END 2019-09-23 05:00 ==
LOC: ED 03:38
DX: F41.9 Anxiety disorder, unspecified (principal)
CPT/HCPCS: 99281; 99282